=== PATIENT | female | born 1980 | race Two or more races ===

== ENCOUNTER 2018-05-10 11:42 | Day surgery (SDC) | payer BC ==
[~2018-05-10] VITALS: Ht 157.5 cm; Wt 65.3 kg
[2018-05-10 13:23] VITALS: Ht 157.5 cm; Wt 65.3 kg
[2018-05-10] MEDS ORDERED: NO HOME MEDS (13:29)
[2018-05-10 13:38] VITALS: BP 117/64; PULSE 88; RESP 24
== END 2018-05-10 16:07 | disposition home or self-care (01) ==
LOC: GIL 11:42
PROVIDERS: ATTEND Internal Medicine Gastroenterology
DX: R10.13 Epigastric pain (principal); Z53.8 Procedure and treatment not carried out for other reasons